=== PATIENT | female | born 1950 | race Caucasian/White ===

== ENCOUNTER 2021-06-30 10:45 | Outpatient (CLI) | payer MEDICARE, OTHER | END 2021-06-30 10:46 | disposition home or self-care (01) | LOC: BICMAMMO 10:45 | PROVIDERS: ATTEND Internal Medicine Rheumatology | DX: M81.0 Age-related osteoporosis without current pathological fracture (principal); M85.89 Other specified disorders of bone density and structure, multiple sites | CPT/HCPCS: 77080 ==

== ENCOUNTER 2022-07-01 11:03 | Outpatient (CLI) | payer MEDICARE, OTHER | END 2022-07-01 11:04 | disposition home or self-care (01) | LOC: BICMAMMO 11:03 | PROVIDERS: ATTEND Nurse Practitioner | DX: Z13.820 Encounter for screening for osteoporosis (principal); Z78.0 Asymptomatic menopausal state; M81.0 Age-related osteoporosis without current pathological fracture; M85.851 Other specified disorders of bone density and structure, right thigh | CPT/HCPCS: 77080 ==